=== PATIENT | male | born 1975 | race Caucasian/White ===

== ENCOUNTER 2020-04-07 16:24 | Inpatient (IN) | payer OTHER, SELFPAY ==
[2020-04-07] VITALS (17 sets, daily range): BP systolic 156–182; BP diastolic 87–117; PULSE 62–86; RESP 11–18; TEMP 35.9–36.4; O2SAT 99–100; BMI 29.1
--- NOTE | ~2020-04-07 | MR_ITS ---
EXAMINATION: MR brain/brain stem wo/w con EXAM DATE: 04/08/2020 10:42 INDICATION: Transient ischemic attack. Right hemiparesis. TECHNIQUE: Magnetic resonance imaging (MRI) of the brain/brain stem obtained without contrast. Sagit russell T1, axial diffusion, gradient echo (T2*), T1, T2, FLAIR sequences obtained. Patient was then inj ected with 17 cc intravenous Multihance contrast. Axial and coronal postcontrast T1 weighted sequence s obtained. There is no prior study for comparison. FINDINGS: There is acute lacunar infarction in the posterior limb of the left internal capsule. There are several T2/flair signal hyperintensities in the periventricular region, involving margins of the corpus callosum. Possible multiple sclerosis. Differential diagnosis includes demyelinating disease, premature chronic small vessel ischemic disease (especially if the patient has cardiovascular risk f actors), migraine headaches, vasculopathy, lyme's disease or reactive astrocytosis (gliosis) secondar y to nonspecific etiology. There is no acute hemorrhage seen on the T2*, a susceptibility sensitive sequence. Flow voids are see n in the cerebral arteries on the T2 weighted sequences consistent with their expected patency. No ex tra-axial collections or obstructive hydrocephalus. There is right-sided ostiomeatal unit obstructive sinus disease with opacified maxillary sinus, frontal sinus, anterior ethmoid sinus. There are no ar eas of abnormal enhancement on the post contrast images. IMPRESSION: 1. Acute left internal capsular lacunar infarction. 2. Several periventricular hyperintensities involving corpus callosum margins, possible sequela from chronic demyelinating process. 3. Right ostiomeatal unit obstructive sinus disease. Reviewed, dictated and finalized at location A. RANCE ACCOUNT ASSISTANT
--- NOTE | ~2020-04-07 | CT_ITS ---
EXAMINATION: CTA BRAIN/CAROTID DATE: 04/07/2020 17:41 INDICATION: Right-sided weakness. TECHNIQUE: Computed tomographic angiography (CTA) of the head and neck was performed with 100 mL Omni paque-350 intravenous contrast. Multiplanar reconstructions and maximum intensity projection 3D-recon structions of the carotid arteries and of the intracranial arteries were created by the technologist on a separate workstation. Precontrast CT of the head was also obtained. Automated exposure control and iterative reconstruction technique were employed.The dose-length product was 1762.95 mGy-cm. COMPARISON: None. FINDINGS: Carotid arteries: There is 10% stenosis of the right carotid bulb relative to normal distal artery lumen diameter (NASC ET criteria). There is 20% stenosis of the left carotid bulb relative to normal distal artery lumen d iameter. Cervical soft tissues are unremarkable. Visualized airway and apices of the lungs are clear. Minimal to mild cervical spondylosis. Head: There is a region of decreased attenuation at the posterior limb of the left internal capsule consist ent with age-indeterminate infarct. No acute intracranial hemorrhage or abnormal extra axial fluid co llection. Ventricles are normal and symmetric. No mass/mass effect. There is complete opacification o f the right maxillary and frontal sinuses and majority of the right ethmoid air cells. The orbits and mastoid air cells are normal. No abnormally enhancing brain lesions. Intracranial arteries There is no hemodynamically significant stenosis in the vertebral, basilar and internal carotid arter ies. Vertebral arteries are codominant. There are no aneurysms identified. Both A1 and P1 segments a re patent. Cerebral arterial arborization appears symmetric. IMPRESSION: 1. 10% stenosis of the right carotid bulb relative to normal distal artery lumen diameter (NASCET cri teria). 2. 20% stenosis of the left carotid bulb relative to normal distal artery lumen diameter. 3. Age-indeterminate infarct in the posterior limb of the left internal capsule. 4. Normal cerebral CT angiogram. 5. Extensive right-sided sinus disease. Reviewed, dictated and finalized at location A. OMER SERVICE CORRESPONDENCE CLERK IMPRESSION: 1. 10% stenosis of the right carotid bulb relative to normal distal artery lume n diameter (NASCET criteria). 2. 20% stenosis of the left carotid bulb relative to normal distal artery lumen diameter. 3. Age-indeterminate infarct in the posterior limb of the left internal capsule . 4. Normal cerebral CT angiogram. 5. Extensive right-sided sinus disease.
--- NOTE | ~2020-04-07 | XR_ITS ---
EXAMINATION: XR chest 1V portable 04/07/2020 16:48 INDICATION: Diabetes. Right-sided weakness. PROCEDURE: AP portable chest COMPARISON: No prior studies for comparison. FINDINGS: The lungs are clear. The cardiomediastinal silhouette is within normal limits. There are no pleural effusions. There is no pneumothorax suspected. IMPRESSION: 1: NO ACUTE CARDIOPULMONARY DISEASE. Reviewed, dictated and finalized at location B. AR CLOSER LOCKSTITCH
--- NOTE | 2020-04-07 16:30 | ECG_ITS ---
Measurements Intervals Dexter Rate: 78 P: 62 NC: 146 QRS: -26 QRSD: 94 T: 46 QT: 351 QTc: 401 Interpretive Statements SINUS RHYTHM POSSIBLE LEFT ATRIAL ENLARGEMENT DELAYED PRECORDIAL R/S TRANSITION BORDERLINE ECG Electronically Signed On 04-07-2020 16:39:17 COGNOS ANALYST by Sameer Zimmerman D.O.
--- NOTE | 2020-04-07 16:40 | PC.NURSE ---
VERBAL ORDER FROM ERP RAÚL TO CANCEL UA ORDER.
--- NOTE | 2020-04-07 16:41 | ED.GENADULT ---
HPI - General Adult General Chief complaint: Neuro Symptoms/Deficit Stated complaint: r sided numbness x 1 week Time Seen by Provider: 04/07/20 16:34 Source: patient History of Present Illness HPI narrative: Patient is a 44 y/o male complaining of moderate right sided weakness when he woke up this morning around 7:30 AM. He states that his symptoms persisted for about 1 hour and resolved spontaneously. He went to sleep around 1:30 AM and did not fall asleep until 3:30 AM this morning. He states that he felt fine prior to falling asleep. He had a similar episode of right sided weakness 1 week ago and it resolved spontaneously. Related Data Home Medications Medication Instructions Recorded Confirmed insulin lispro 100 unit/mL 1 sliding scale dose SUBCUT 01/21/20 subcutaneous cartridge USEASDIRECTD insulin glargine [Lantus Solostar SUBCUT 04/07/20 U-100 Insulin] Allergies Allergy/AdvReac Type Severity Reaction Status Date / Time morphine Allergy Unknown Unknown Verified 04/07/20 16:26 Review of Systems Constitutional: Constitutional: Denies chills, Denies fever(s), Denies headache(s) and Denies weakness Eyes: Eyes: Denies blurry vision ENT: Denies headache(s) and Denies neck pain Cardiovascular: Cardiovascular: Denies chest pain and Denies dyspnea Respiratory: Respiratory: Denies cough and Denies dyspnea Gastrointestinal: Gastrointestinal: Denies abdominal pain, Denies diarrhea, Denies nausea and Denies vomiting Genitourinary: Genitourinary: Denies hematuria and Denies dysuria Musculoskeletal: Musculoskeletal: Denies back pain and Denies neck pain Neurologic: Denies headache(s) and Reports weakness (right side) [facility] Past Medical History Medical History IDDM (insulin dependent diabetes mellitus) Family History Family History Mother Family history of malignant neoplasm of stomach Other Family history of malignant neoplasm Hypertension Social History Social History Smoking packs per day: 1 Smoking cigarettes per day: 20.0 Years smoked: 15 Smoking pack-years: 15.00 Smoking status: Heavy tobacco smoker Second hand tobacco smoke exposure: Yes Alcohol intake: current Substance use: never Substance use type: does not use Gender identity (if verbalized by the patient): Male Exam Const: General: no acute distress and well developed Orientation/consciousness: oriented to person, oriented to place, oriented to time and patient oriented x3 HENMT: Head: normocephalic Ears: external ears normal General nose exam: Normal external nose present Eyes: General: appearance normal, both eyes and all related structures Conjunctivae: conjunctivae normal Neck: Neck: normal visual inspection and full ROM Chest: Chest palpation & inspection: normal inspection of the chest and no tenderness Resp: Effort & Inspection: normal respiratory effort Auscultation: clear to auscultation bilaterally Cardio: Rate: regular rate Rhythm: regular rhythm GI: GI Palp: No abdominal tenderness and Yes Soft to palpation Skin: General skin exam: normal color and turgor normal Neuro: General: oriented to person, oriented to place, oriented to time and patient oriented x3 Cranial nerves: Yes CN's II-XII intact bilaterally Cognition (Neuro): normal cognition Speech: normal speech Motor exam (neuro): 5/5 motor strength present throughout Sensory Exam: normal sensation Coordination: [id number] test normal and [id number] test normal Extrem: General: normal to inspection, full ROM and no pedal edema Psych: Appearance: grossly normal Mental Status: mental status grossly normal Affect: normal affect Course Consultations Consultation #1: Discussed with REY Ramos, who agrees to admit. Date: 04/07/20 Time: 18:32 Vital Signs Vital signs: Vi
[2020-04-07 16:43] LABS: Basophils Absolute Auto 0.2 K/mm3 (0.0-0.1); Basophils Percent Auto 1.7 % (0.2-1.2); Eosinophils Absolute Auto 0.3 K/mm3 (0-0.3); Hematocrit 44.3 % (42.0-52.0); Hemoglobin 15.1 g/dL (14.0-18.0); Immature Granulocyte Absolute 0.06 K/mm3 (0.00-0.031); Immature Granulocyte Percent A 0.4 % (0-0.5); Lymphocytes Absolute Auto 4.07 K/mm3 (0.9-3.2); Lymphocytes Percent Auto 29.6 % (18.3-44.2); Mean Corpuscular HGB Conc 34.1 g/dl (32-36); Mean Corpuscular Hemoglobin 30.1 pg (26-34); Mean Corpuscular Volume 88.2 fl (80-100); Mean Platelet Volume 9.9 fl (7.4-10.4); Monocytes Absolute Auto 0.8 K/mm3 (0.1-0.6); Monocytes Percent Auto 5.7 % (2.6-8.5); Neutrophils Absolute Auto 8.3 K/mm3 (1.3-6.7); Neutrophils Percent Auto 60.6 % (45.5-73.1); Platelet Count Result 397 k/mm3 (150-375); Red Blood Count 5.02 M/mm3 (4.6-6.20); Red Cell Distribution Width 12.5 % (11.5-14.5); White Blood Count 13.7 K/mm3 (4.5-10.0)
[2020-04-07 16:44] LABS: Glucose Point of Care 131 (65-105)
[2020-04-07 16:53] LABS: INR 0.9; Prothrombin Time 12.7 Seconds (11.1-14.7)
[2020-04-07 16:54] LABS: Partial Thromboplastin Time 27.5 SECONDS (22.3-36.8)
[2020-04-07 17:00] LABS: Anion Gap 8 mmol/L (8-16); Blood Urea Nitrogen 9 mg/dL (9-20); Calcium 9.9 mg/dL (8.4-10.2); Carbon Dioxide 32 mmol/L (22-30); Chloride 100 mmol/L (98-107); Estimated CRCL calculation 93 ml/min; Estimated Glomerular Filt Rate > 60; Glucose 132 mg/dL (75-110); Phosphorus 4.8 mg/dL (2.5-4.5); Potassium 4.1 mmol/L (3.4-5.0); Sodium 140 mmol/L (137-145)
[2020-04-07 17:10] LABS: Troponin I < 0.012 ng/mL (0.000-0.034)
[2020-04-07] MEDS: ASPIRIN 81 MG CHEWABLE TABLET 324 MG PO (18:22)
--- NOTE | 2020-04-07 18:27 | PC.NURSE ---
VERBAL ORDER FROM MATILDE OLSEN FOR DIABETIC DIET.
[2020-04-07] MEDS: hydroCHLOROthiazide 25 MG TABLET PO (18:39)
--- NOTE | 2020-04-07 19:08 | ADMGEN ---
This patient, Luis Crandall, was admitted to Medical Room 341-01. Patient/family oriented to hospital policies and general routines including ID bracelet, bed and alarms, visiting hours, pain management, procedures, bathroom and other care routines, personal items, smoking policy, room service/diet, and visiting hours. Information on how to activate the Rapid Response Team has been discussed. Patient/Family are encouraged to report perceived risks to care and to ask questions if they do not understand what they are told or what they should do.
--- NOTE | 2020-04-07 19:11 | PM.IMHP ---
H&P: HPI History of Present Illness Date/Time: 04/07/20 19:11 Chief complaint: tia Narrative: Luis Crandall is a 44 year old male with PMHx significant for IDDM, patient presented to ED due to R sided weakness, had similar episode a week ago after he fell asleep when waking up noticed that his R side was weak however was able to walk to the bathroom although stumbled against the wall, he recovered completely by next day in the morning, he had similar episode tosay again and went to see his PCP who in turn sent him to ED. Preliminary work up revealed stroke of indeterminate age, SBP was in the 190's as well. He quit smoking in November now is Vaping and planning to quit by November next year. He denies any headaches, fevers, rigors,chills, sob, cough, sputum production, chest pain, pnd, orthopnea, no problems with gait. CT head also revealed R sided sinus disease. Review of Systems Review of Systems: Narrative: Patient was sent to ED after having episode of R sided weakness. Constitutional: Comments: no fevers, no rigors, no chills. Eyes: Comments: no vision changes. ENT: Comments: no ear ache, no throat pain, no nasal congestion. Cardiovascular: Comments: no chest pain, no pnd, no orthopnea, no claudication. Respiratory: Comments: no sob, no cough, no sputum production. Gastrointestinal: Comments: n/v/abdominal pain. Musculoskeletal: Comments: no muscle aches or pains. Integumentary/Breasts: Comments: no rashes. Neurologic: Reports focal weakness and Reports tingling Comments: R sided. Hematologic/Lymphatic: Comments: no LAP PMFSH Past Medical History Medical History IDDM (insulin dependent diabetes mellitus) Family History Family History Mother Family history of malignant neoplasm of stomach breast cancer as well Father Hypertension Family history of malignant neoplasm Social History Social History Smoking packs per day: 1 Smoking cigarettes per day: 20.0 Years smoked: 15 Smoking pack-years: 15.00 Smoking status: Former smoker Tobacco type: e-cigarettes/vaping Second hand tobacco smoke exposure: Yes Alcohol intake: former Substance use: never Substance use type: does not use Gender identity (if verbalized by the patient): Male Spiritual care concerns: No Meds Home Medications and Allergies Home Medications Medication Instructions Recorded Confirmed Type insulin lispro 100 unit/mL 1 sliding scale dose SUBCUT 01/21/20 04/07/20 History subcutaneous cartridge USEASDIRECTD sildenafil 100 mg tablet 100 mg PO DAILY PRN #4 tablet 03/28/20 04/07/20 Rx insulin glargine [Lantus Solostar 45 unit SUBCUT DAILY 04/07/20 04/07/20 History U-100 Insulin] Allergies Allergy/AdvReac Type Severity Reaction Status Date / Time morphine Allergy Unknown Unknown Verified 04/07/20 20:04 Vital Signs Vital Signs - 24 hr 04/07/20 16:26 04/07/20 16:38 04/07/20 16:47 Temperature 97.5 F L Pulse Rate 82 86 80 Respiratory Rate 18 15 13 Blood Pressure 179/89 H Pulse Oximetry 100 04/07/20 17:00 04/07/20 17:01 04/07/20 17:35 Temperature Pulse Rate 75 80 66 Respiratory Rate 15 17 11 L Blood Pressure 166/93 H Pulse Oximetry 100 04/07/20 17:50 04/07/20 18:00 04/07/20 18:01 Temperature Pulse Rate 70 66 66 Respiratory Rate 13 15 12 Blood Pressure 161/87 H Pulse Oximetry 100 100 99 04/07/20 18:15 04/07/20 18:16 04/07/20 18:17 Temperature Pulse Rate 71 72 70 Respiratory Rate 17 15 16 Blood Pressure 182/117 H Pulse Oximetry 99 100 100 04/07/20 18:30 04/07/20 18:31 04/07/20 18:57 Temperature Pulse Rate 68 63 74 Respiratory Rate 16 12 16 Blood Pressure 164/96 H 172/91 H Pulse Oximetry 100 100 100 Exam Narrative: Exam Narrative: Lying in bed. Const: General: cooperative
[2020-04-07 22:59] LABS: Glucose Point of Care 123 (65-105)
[2020-04-08] VITALS (7 sets, daily range): BP systolic 146–153; BP diastolic 77–96; PULSE 53–69; RESP 16; TEMP 36–36.4; O2SAT 98–99; BMI 29.1
[2020-04-08 05:54] LABS: Blood Urea Nitrogen 11 mg/dL (9-20); Calcium 9.3 mg/dL (8.4-10.2); Carbon Dioxide 32 mmol/L (22-30); Chloride 97 mmol/L (98-107); Estimated CRCL calculation 93 ml/min; Estimated Glomerular Filt Rate > 60; Glucose 136 mg/dL (75-110)
--- NOTE | 2020-04-08 06:00 | ECHO_ITS ---
Patient Info Name: Luis Crandall Age: 44 years : 1975 Gender: Male Ht: 69 in Wt: 197 lbs BSA: 2.11 m2 HR: 60 bpm BP: 146 / 78 mmHg Technical Quality: Good Exam Date: 04/08/2020 10:49 AM Exam Location: [facility] Patient Status: Inpatient Admit Date: 04/07/2020 Staff Ordering Physician: Petra Mcwilliams MD Research Test Engine Operator: Jennifer Cullen RDCS Attending Provider: Melanie Ridley MD Referring Physician: Oj BOLAND; Exam Type: CA echo doppler color flow Study Info Indications - TIA Complete two-dimensional, color flow and Doppler transthoracic echocardiogram is performed. Summary 1. Complete two-dimensional, color flow and Doppler transthoracic echocardiogram is performed. 2. Left ventricular chamber dimension is normal. 3. Left ventricular systolic function is hyperdynamic, estimated at >70%. 4. The left ventricular diastolic function is normal. 5. E/e' 6 is not elevated. 6. Global longitudinal strain is normal at -19.3%. 7. No pulmonary hypertension, estimated pulmonary arterial systolic pressure is 28 mmHg. Left Ventricle E/e' 6 is not elevated. Global longitudinal strain is normal at -19.3%. Left ventricular chamber dimension is normal. Left ventricular systolic function is hyperdynamic, estimated at >70%. The left ventricular diastolic function is normal. Right Ventricle Right ventricular chamber dimension is normal. Right ventricular systolic function is normal. Left Atria Left atrial chamber dimension is normal. Right Atria Right atrial chamber dimension is normal. Aortic Valve The aortic valve is trileaflet. There is no aortic valve stenosis. There is no aortic valve regurgitation. Pulmonic Valve There is no pulmonic regurgitation. Mitral Valve There is no mitral valve stenosis. There is no mitral valve regurgitation. Tricuspid Valve There is no tricuspid valve regurgitation. No pulmonary hypertension, estimated pulmonary arterial systolic pressure is 28 mmHg. Pericardium/Pleural There is no pericardial effusion. Inferior Vena Cava Normal inferior vena cava with >50% collapse upon inspiration consistent with normal right atrial pressure, 5 mmHg. Aorta The aortic root size at the sinus of Valsalva is normal. Left Ventricular Outflow Tract Name Value Normal LVOT 2D LVOT Diameter 2.0 cm LVOT Doppler LVOT Peak Gradient 5 mmHg LVOT Mean Gradient 3 mmHg LVOT VTI 24 cm LVOT VTI/AV VTI Ratio 0.9 LVOT Stroke Volume 75 ml LVOT CO 3.9 l/min LVOT CI 1.9 l/min/m2 Pulmonic Valve Name Value Normal RVOT Doppler RVOT Peak Gradient 4 mmHg PV Doppler --
[2020-04-08 06:11] LABS: Anion Gap 6 mmol/L (8-16); Potassium 3.8 mmol/L (3.4-5.0); Sodium 135 mmol/L (137-145)
[2020-04-08 07:59] LABS: Glucose Point of Care 214 (65-105)
[2020-04-08] MEDS: INSULIN ASPART (*BKC) 100 UNITS/ML SUB-Q ×2 (08:21→12:10)
[2020-04-08] MEDS: lisinopriL 10 MG TABLET PO (08:21)
[2020-04-08] MEDS: AMOXICILLIN/CLAVULANATE K 875-125 MG TAB 1 TABLET PO (08:21)
[2020-04-08] MEDS: INSULIN GLARGINE (*BKC) 100 UNITS/ML 45 UNITS SUB-Q (08:22)
--- NOTE | 2020-04-08 11:48 | WPDNEURCNPN ---
Assessment and Plan Assessment and plan (1) Transient ischemic attack: Code(s): G45.9 - Transient cerebral ischemic attack, unspecified Status: Acute (2) IDDM (insulin dependent diabetes mellitus): Status: Acute (3) Hypertension: Qualifiers: Hypertension type: unspecified Qualified Code(s): I10 - Essential (primary) hypertension Code(s): I10 - Essential (primary) hypertension Status: Acute Additional Plan MRI of the brain revealing the left internal capsular lacunar infarct but in addition to several periventricular hyperintensities involving the corpus callosum margins considering the age of the patient preferred to rule out the possibility of demyelinating disease that is obtain the MRI of cervical and thoracic spine before any further recommendations are made he was reluctant to stay in the hospital but t we have rule out the demyelinating disease Consult date: 04/08/20 Time Seen: 11:15 HPI: Luis Crandall is a 44 year old male Has been admitted to the hospital with a history of 1. Significant insulin-dependent diabetes mellitus in addition to the complaints of right-sided weakness and had a similar episode a week ago after he fell asleep however he was able to walk to the bathroom though he stumbled he recovered completely by next day in the morning and had similar episodes to see again when he went to see his primary care physician and was asked to come to the emergency room on arrival his blood pressure was 190 he has stopped smoking in November and is waiting and planning to quit by to [facility] next year gave no history of any other associated neurological symptomatology or such symptoms in the past. He does have a history of insulin-dependent diabetes mellitus his smoking packs per day 1 cigarettes per day 20 years smoked 15 and his medications include insulin lispro sliding scale and 45units subcu daily in addition to sildenafil 100 mg p.r.n. Evaluation up until no documented leukocytosis on CBC with platelet count of 397 [id number] troponin less than 0.012 MRI of the brain acute left internal capsular lacunar infarct with several periventricular hyperintensities involving corpus callosum margins possible sequelae from the chronic demyelinating process, echocardiogram with more than 70% systolic function no pulmonary hypertension head neck CTA with 10% stenosis of right carotid bulb, 20% of the left carotid bulb, age indeterminate infarct the posterior limb of the left internal capsule old abnormal CT angiogram Review of Systems Review of Systems: All systems reviewed & are unremarkable except as noted in HPI and below PMFSH Past Medical History Medical History IDDM (insulin dependent diabetes mellitus) Family History Family History Mother Family history of malignant neoplasm of stomach breast cancer as well Father Hypertension Family history of malignant neoplasm Social History Social History Smoking packs per day: 1 Smoking cigarettes per day: 20.0 Years smoked: 15 Smoking pack-years: 15.00 Smoking status: Former smoker Tobacco type: e-cigarettes/vaping Second hand tobacco smoke exposure: Yes Alcohol intake: former Substance use: never Substance use type: does not use Gender identity (if verbalized by the patient): Male Spiritual care concerns: No Meds Home Medications and Allergies Home Medications Medication Instructions Recorded Confirmed Type insulin lispro 100 unit/mL 1 sliding scale dose SUBCUT 01/21/20 04/07/20 History subcutaneous cartridge USEASDIRECTD sildenafil 100 mg tablet 100 mg PO DAILY PRN #4 tablet 03/28/20 04/07/20 Rx insulin glargine [Lantus Solostar 45 unit SUBCUT DAILY 04/07/20 04/07/20 History U-100 Insulin] Allergies Allergy/AdvReac Type Rimmai
[2020-04-08 11:53] LABS: Glucose Point of Care 274 (65-105)
--- NOTE | 2020-04-08 14:42 | PM.DS ---
DS: Admitting Diagnosis Admitting Diagnosis Admitting Diagnosis: Karely is a 44 year old male with PMHx significant for IDDM, patient presented to ED due to R sided weakness, had similar episode a week ago after he fell asleep when waking up noticed that his R side was weak however was able to walk to the bathroom although stumbled against the wall, he recovered completely by next day in the morning, he had similar episode so he came into the ED. Pt had MRI of brain and echo. MRI brain was positive for infarct and possible demyelinating disease. Pt advised to have MRI C and T spine but pt wants to go home and have these tests as an outpatient. Pt does not have any neurological deficits on examination, with walking or speech or swallow. And was discharged home is a stable condition. Pt found to have HTN and was discharged on Lisinopril, pt already has DM and is on insulin at home, states his sugars run good. CT head also revealed R sided sinus disease so pt was started on Augmentin on discharge. DS: Discharge Diagnosis Discharge Diagnosis (1) Stroke: Code(s): I63.9 - Cerebral infarction, unspecified Status: Acute Assessment and Plan: CT Brain 1. Acute left internal capsular lacunar infarction. 2. Several periventricular hyperintensities involving corpus callosum margins, possible sequela from chronic demyelinating process. as seen on mri brain MRI brain 1. Acute left internal capsular lacunar infarction. 2. Several periventricular hyperintensities involving corpus callosum margins, possible sequela from chronic demyelinating process. 3. Right ostiomeatal unit obstructive sinus disease Echo 1. Complete two-dimensional, color flow and Doppler transthoracic echocardiogram is performed. 2. Left ventricular chamber dimension is normal. 3. Left ventricular systolic function is hyperdynamic, estimated at >70% CTA BRAIN/CAROTID 1. 10% stenosis of the right carotid bulb relative to normal distal artery lumen diameter (NASCET criteria). 2. 20% stenosis of the left carotid bulb relative to normal distal artery lumen diameter. DS: Summary Time Spent with Patient Time attestation: Total time spent providing and/or coordinating discharge services:40 minutes on day of discharge Exam Narrative: Exam Narrative: Lying in bed. Const: General: cooperative, healthy appearing, comfortable, no acute distress, well developed, alert, awake and Physically active Nutritional Appearance: average body habitus Orientation/consciousness: patient oriented x3 Limitations: no limitations HENMT: Head: normocephalic Ears: hearing grossly normal bilaterally General nose exam: Normal external nose present Face and sinus: normal facial exam Mouth: Yes Normal oral and palatal mucosa present Eyes: General: appearance normal, both eyes and all related structures Pupils: Equal, round and reactive pupils present EOM: EOMs intact bilaterally Neck: Neck: full ROM, no lymphadenopathy and no JVD Lymphatic: no lymphadenopathy noted Resp: Effort & Inspection: normal respiratory effort Auscultation: clear to auscultation bilaterally GI: Inspection: normal to inspection Skin: General skin exam: normal color Lesions: no lesions Rashes: no rashes Wounds: no wounds Neuro: General: patient oriented x3 and CN's II-XI intact bilaterally Cranial nerves: Yes CN's II-XII intact bilaterally and Yes Equal, round and reactive pupils present Speech: normal speech Gait exam (Neuro): Normal gait present Motor exam (neuro): 5/5 motor strength present throughout Sensory Exam: normal sensation Extrem: General: normal to inspection, full ROM, no joint enlargement and no pedal edema DS: Data Data Completed and Pending Labs on day of discharge: Labs from last 24 hours 04/08/20 04/08/20 04/08/20 11:46 07:45 05:16 WBC RBC Hgb Hct MCV MCH MCHC RDW Plt Count MPV Immature Gran % (Auto) Neut % (Auto) Lymp
== END 2020-04-08 16:18 | disposition home or self-care (01) | DRG 65 ==
LOC: ANHED 16:57 → ANH3MED 18:48
PROVIDERS: Emergency Medicine Emergency Medical Services; Internal Medicine; Admitting Provider Family Medicine; Emergency Provider Emergency Medicine; PCP Family Medicine; Visit Provider Family Medicine
DX: I63.9 Cerebral infarction, unspecified (principal); G81.91 Hemiplegia, unspecified affecting right dominant side; I10 Essential (primary) hypertension; R29.700 NIHSS score 0; E11.9 Type 2 diabetes mellitus without complications; F17.290 Nicotine dependence, other tobacco product, uncomplicated
CPT/HCPCS: 36415; 70496; 70498; 70553; 71045; 80048; 82948; 83735; 84100; 84484; 85025; 85610; 85730; 93005; 93306; 99285; A9270; A9577; G0378; J1815; Q9967

== ENCOUNTER 2020-05-05 12:18 | Outpatient (CLI) | payer OTHER, SELFPAY ==
--- NOTE | ~2020-05-05 | MR_ITS ---
EXAMINATION: MR cervical spine wo/w con EXAM DATE: 05/05/2020 14:23 INDICATION: Transient ischemic attack. Right-sided weakness. Abnormal brain MRI exam. Multiple sclero sis. TECHNIQUE: Multi-sequential, multiplanar MR images of the cervical spine were obtained without contra st. Axial T2, axial T2 MERGE sequence. Sagittal T1, T2, T2 fat saturation images also obtained. Axi al T1 weighted sequence. Patient was then injected with 17 mL Multihance intravenous contrast and re imaged. Postcontrast axial and sagittal T1-weighted fat saturation sequences were obtained. Correlat ion was made with brain MR 04/08/2020. FINDINGS: The spinal cord signal intensity and intrinsic morphology is normal. Cervicomedullary junc tion is normal in appearance. There is mild disc disease C5-6 and C6-7. The vertebral body and disc h eights are otherwise well maintained. The vertebral bodies are aligned in the AP dimension. The mar row Paraspinal soft tissue is unremarkable. There are no areas of abnormal enhancement on the post co ntrast images. Level by level evaluation: C2-C3: Disc does not extend beyond the endplate margin. Uncovertebral joint arthropathy: None. Facet joint arthropathy: Mild left. Neural foraminal stenosis: No stenosis. Central canal stenosis: No stenosis. C3-C4: Disc does not extend beyond the endplate margin. Uncovertebral joint arthropathy: Mild bilateral. Facet joint arthropathy: Mild bilateral. Neural foraminal stenosis: Mild right. Central canal stenosis: No stenosis. C4-C5: There is a minimal diffuse disc bulge. Uncovertebral joint arthropathy: Moderate bilateral. Facet joint arthropathy: Mild bilateral. Neural foraminal stenosis: Mild to moderate bilateral. Central canal stenosis: Minimal. C5-C6: There is a mild diffuse disc bulge. Uncovertebral joint arthropathy: Moderate bilateral. Facet joint arthropathy: Mild bilateral. Neural foraminal stenosis: Moderate left, mild to moderate right. Central canal stenosis: Mild. C6-C7: Mild to moderate disc bulge asymmetric to the right Uncovertebral joint arthropathy: Moderate bilateral. Facet joint arthropathy: Mild bilateral. Neural foraminal stenosis: Moderate to severe bilateral. Central canal stenosis: Mild. C7-T1: There is a minimal diffuse disc bulge. Uncovertebral joint arthropathy: Mild. Facet joint arthropathy: Mild. Neural foraminal stenosis: Mild left. Central canal stenosis: No stenosis. IMPRESSION: 1. Normal cervical spinal cord signal. 2. Cervical spondylosis with C6-7 neural foramen most narrowed. Reviewed, dictated and finalized at location B. [employer]
--- NOTE | ~2020-05-05 | MR_ITS ---
EXAMINATION: MR thoracic spine wo/w con EXAM DATE: 05/05/2020 15:28 INDICATION: Transient ischemic attack. Right-sided weakness. Abnormal brain MRI exam. Multiple sclero sis. TECHNIQUE: Multi-sequential, multiplanar MR images of the thoracic spine were obtained without contra st. Sagittal T1, T2, T2 fat saturation, axial T2 weighted images reviewed. Axial T1 weighted sequenc e. Patient was then injected with 17 mL Multihance intravenous contrast and reimaged. Postcontrast axial and sagittal T1-weighted fat saturation sequences were obtained. Correlation is made to brain MRI 04/08/2020. FINDINGS: Vertebral body and disc heights are well-maintained. There are minimal disc bulges and prot rusions of the thoracic spine. The thoracic central canal and neural foramen are widely patent. The s chris cord signal intensity and intrinsic morphology is normal. There are no suspicious marrow signal abnormalities. Paraspinal soft tissue is unremarkable. Mild thoracic facet arthropathy. There are no areas of abnormal enhancement on the post contrast images. IMPRESSION: Normal thoracic cord signal. Mild spondylosis. Reviewed, dictated and finalized at location B. [employer]IST[employer]
== END 2020-05-05 12:19 | disposition home or self-care (01) ==
PROVIDERS: PCP Family Medicine; Visit Provider Psychiatry & Neurology Neurology
DX: G35 Multiple sclerosis (principal); M47.813 Spondylosis without myelopathy or radiculopathy, cervicothoracic region; M48.03 Spinal stenosis, cervicothoracic region
CPT/HCPCS: 72156; 72157; A9577

== ENCOUNTER 2022-06-18 00:58 | Day surgery (SDC) | payer OTHER, SELFPAY ==
[2022-06-09 10:48] VITALS: BMI 27.5
[2022-06-18 08:35] VITALS: BP 140/81; PULSE 62; RESP 18; TEMP 35.5; O2SAT 100
[2022-06-18] MEDS: LACTATED RINGERS 1,000 ML 150 ML IV CONT (08:39)
--- NOTE | 2022-06-18 08:43 | P.PNAN_ITS ---
Anes - Initial Pre Proc Eval Procedure: Operation Date: 06/18/22 09:00 Proposed Procedures p Screening Colonoscopy - Elian Squires MD Date/Time: 06/18/22 08:43 Surgeon: Elian Squires MD Pre Op Diagnosis: neoplasm screening Patient Data Age: 46 Gender: M Height: 1.75 m Weight: 83.8 kg Last Vital Signs Temp 35.5 C L 06/18/22 08:35 Pulse 62 06/18/22 08:35 Resp 18 06/18/22 08:35 BP 140/81 06/18/22 08:35 Pulse Ox 100 06/18/22 08:35 O2 Del Method Room Air 06/18/22 08:35 Allergies Allergy/AdvReac Type Severity Reaction Status Date / Time morphine AdvReac Intermediate Nausea and Verified 06/18/22 08:34 Vomiting Home Medications Medication Instructions Recorded Confirmed Type insulin lispro 100 unit/mL 1 sliding scale dose subcut 01/21/20 06/18/22 History subcutaneous cartridge (Humalog USEASDIRECTD U-100 Insulin) atorvastatin 20 mg tablet (Lipitor) 20 mg PO DAILY #90 tabs 02/08/22 06/18/22 Rx tadalafil 20 mg tablet (Cialis) 20 mg PO DAILY PRN sexual activity 03/12/22 06/18/22 Rx #10 tabs aspirin 325 mg tablet,delayed 325 mg PO DAILY 06/09/22 06/18/22 History release losartan 50 mg tablet 50 mg PO DAILY 06/09/22 06/18/22 History Patient hx anesthesia problems: none Family hx anesthesia problems: none Results Review: All pre-operative results and documents have been reviewed as part of the pre- operative evaluation. [facility] Past Medical History Medical History Erectile dysfunction Hypertension IDDM (insulin dependent diabetes mellitus) Transient ischemic attack Family History Family History Mother Family history of malignant neoplasm of stomach breast cancer as well Father Hypertension Family history of malignant neoplasm Social History Social History Smoking packs per day: 1 Smoking cigarettes per day: 20.0 Years smoked: 15 Smoking pack-years: 15.00 Smoking status: Former smoker Tobacco type: cigarettes Second hand tobacco smoke exposure: Yes Alcohol intake: current Alcohol use details: rare Substance use: never Substance use type: does not use Living arrangements: with family Occupation/Education: occupation Gender identity (if verbalized by the patient): Male Spiritual care concerns: No Anes - Eval Final PreProcedure Day of Procedure 06/18/22 08:43 Patient weight: overweight Heart: regular rate and rhythm Lungs: decreased breath sounds Airway: Mallampati scale class II Neurological: alert and oriented Last oral intake: >/= 8 hours ASA classification: III Emergent: no Anesthetic plan: proceed Anesthesia type and monitoring: general GIVS and standard monitoring Results Review: All pre-operative results and documents have been reviewed as part of the pre- operative evaluation. Informed Consent: The patient's anesthetic plan and its attendant risks and benefits were discussed with the patient/family/POA. Questions were solicited and answers provided to the satisfaction of the patient/family/POA.
[2022-06-18 08:44] LABS: Glucose Point of Care 141 mg/dl (65-105)
--- NOTE | 2022-06-18 09:19 | PM.HPGS ---
History of Present Illness History of Present Illness Consent: Risks, benefits, and alternatives have been discussed and questions answered. Patient agrees to proceed with procedure. Chief complaint: neoplasm screening Narrative: Luis Crandall is a 46 year old male Presents for screening colonoscopy. Patient's current weight appetite bowel movements are normal. Patient denies abdominal pain. He has had no bleeding. Family history is noncontributory. Review of Systems Review of Systems: All systems reviewed & are unremarkable except as noted in HPI and below PMFSH Past Medical History Medical History Erectile dysfunction Hypertension IDDM (insulin dependent diabetes mellitus) Transient ischemic attack Family History Family History Mother Family history of malignant neoplasm of stomach breast cancer as well Father Hypertension Family history of malignant neoplasm Social History Social History Smoking packs per day: 1 Smoking cigarettes per day: 20.0 Years smoked: 15 Smoking pack-years: 15.00 Smoking status: Former smoker Tobacco type: cigarettes Second hand tobacco smoke exposure: Yes Alcohol intake: current Alcohol use details: rare Substance use: never Substance use type: does not use Living arrangements: with family Occupation/Education: occupation Gender identity (if verbalized by the patient): Male Spiritual care concerns: No Meds Home Medications and Allergies Home Medications Medication Instructions Recorded Confirmed Type insulin lispro 100 unit/mL 1 sliding scale dose subcut 01/21/20 06/18/22 History subcutaneous cartridge (Humalog USEASDIRECTD U-100 Insulin) atorvastatin 20 mg tablet (Lipitor) 20 mg PO DAILY #90 tabs 02/08/22 06/18/22 Rx tadalafil 20 mg tablet (Cialis) 20 mg PO DAILY PRN sexual activity 03/12/22 06/18/22 Rx #10 tabs aspirin 325 mg tablet,delayed 325 mg PO DAILY 06/09/22 06/18/22 History release losartan 50 mg tablet 50 mg PO DAILY 06/09/22 06/18/22 History Allergies Allergy/AdvReac Type Severity Reaction Status Date / Time morphine AdvReac Intermediate Nausea and Verified 06/18/22 08:34 Vomiting Vital Signs Vital Signs - 24 hr 02/10/23 08:35 Temperature 96 F L Pulse Rate 62 Respiratory Rate 18 Blood Pressure 140/81 Pulse Oximetry 100 Oxygen Delivery Room Air Exam Narrative: Physical exam reveals patient to be alert. Vital signs stable. HEENT exam is unremarkable. Patient is anicteric. Lungs are clear to auscultation and percussion. Heart is without murmur or extra sounds. Abdominal exam bowel sounds are present soft nontender with no organomegaly. Digital external rectal exam is normal. Assessment and Plan Assessment and plan (1) Encounter for screening colonoscopy: Code(s): Z12.11 - Encounter for screening for malignant neoplasm of colon Status: Acute Assessment and Plan: Patient presents today for screening colonoscopy. He appears to be at average risk for colon polyps. Further recommendations may be given after endoscopy.
[2022-06-18] MEDS: SIMETHICONE ORAL SUSPENSION 20 MG/0.3 ML 30 ML BOTTLE 0.6 ML IRRIGATION (09:36)
[2022-06-18 09:55] VITALS: BP 116/79; PULSE 59; RESP 15; O2SAT 100
[2022-06-18 10:02] LABS: Glucose Point of Care 187 mg/dl (65-105)
[2022-06-18 10:06] VITALS: BP 141/92; PULSE 52; RESP 13; O2SAT 100
[2022-06-18 10:15] VITALS: BP 135/79; PULSE 62; RESP 15; O2SAT 100
== END 2022-06-18 10:26 | disposition home or self-care (01) ==
PROVIDERS: PCP Family Medicine; Visit Provider Internal Medicine Gastroenterology
PROC: 0DJD8ZZ Inspection of Lower Intestinal Tract, Via Natural or Artificial Opening Endoscopic (ICD-10-PCS; CPT 45378; principal; 2022-06-18 09:00)
DX: Z12.11 Encounter for screening for malignant neoplasm of colon (principal); D12.0 Benign neoplasm of cecum; D12.2 Benign neoplasm of ascending colon; D12.5 Benign neoplasm of sigmoid colon; K64.8 Other hemorrhoids; I10 Essential (primary) hypertension; E11.9 Type 2 diabetes mellitus without complications; Z86.73 Personal history of transient ischemic attack (TIA), and cerebral infarction without residual deficits; Z79.4 Long term (current) use of insulin; Z79.82 Long term (current) use of aspirin; Z87.891 Personal history of nicotine dependence
CPT/HCPCS: 45385; 82948; 88305; J2704; J7120